=== PATIENT | female | born 1990 | race Caucasian/White ===

== ENCOUNTER 2023-05-21 16:30 | Emergency (ER) | payer OTHER ==
[~2023-05-21] VITALS: Ht 167.6 cm; Wt 73.9 kg
[~2023-05-21 16:30] MED LIST: [UNRECOGNIZED DRUG - REMARK]
[2023-05-21 17:01] VITALS: BP 148/92; PULSE 100; RESP 16; TEMP 98.8; O2SAT 100
== END 2023-05-22 04:46 | disposition home or self-care (01) ==
LOC: ER 16:30
DX: R10.30 Lower abdominal pain, unspecified (principal)
CPT/HCPCS: 99284